=== PATIENT | female | born 1940 | race Native Hawaiian/Other Pacific Islander ===

== ENCOUNTER 2022-09-20 17:28 | Emergency (ER) | payer MEDICARE ==
[~2022-09-20] VITALS: Ht 157.5 cm; Wt 56.7 kg
[2022-09-20 17:35] VITALS: TEMP 98
[2022-09-20 18:15] LABS: PLATELET COUNT 383 K/uL (152-353)
[2022-09-20 18:30] LABS: POTASSIUM 3.6 mmol/L (3.6-5.2)
[2022-09-20 19:10] VITALS: BP 141/53
== END 2022-09-20 19:10 | disposition home or self-care (01) ==
LOC: ED 17:28
PROVIDERS: Emergency Medicine Emergency Medical Services
DX: M79.662 Pain in left lower leg (principal); M79.661 Pain in right lower leg; R19.7 Diarrhea, unspecified
CPT/HCPCS: 80053; 85027; 85610; 96361; 96374; 96375; 99284; J2270; J2405

== ENCOUNTER 2023-03-11 17:02 | Emergency (ER) | payer OTHER ==
[~2023-03-11] VITALS: Ht 157.5 cm; Wt 56.7 kg
[2023-03-11 17:02] VITALS: BP 130/73; TEMP 97.9
[2023-03-11 17:52] LABS: PLATELET COUNT 362 K/uL (152-353)
[2023-03-11 18:00] LABS: POTASSIUM 3.9 mmol/L (3.6-5.2)
[2023-03-11] MEDS ORDERED: ASPIRIN/ENTERIC81 MG PO (20:46)
[2023-03-11] MEDS ORDERED: CLARITIN10 MG PO (20:48)
[2023-03-11] MEDS ORDERED: MELATONIN10 M1 PO (20:49)
[2023-03-11] MEDS ORDERED: ROPINIROLE1 MG PO (20:50)
[2023-03-11] MEDS ORDERED: BUPR150T PO (20:51)
[2023-03-11] MEDS ORDERED: FLONASE AL50 MCG/ACT NAS (20:52)
[2023-03-11] MEDS ORDERED: GABA300C2 PO (20:53)
[2023-03-11] MEDS ORDERED: ONDA4TAB3 PO (20:56)
[2023-03-11] MEDS ORDERED: OMEP40CA PO (20:58)
[2023-03-11] MEDS ORDERED: ENTRESTO 24-261 TAB PO (21:04)
[2023-03-11] MEDS ORDERED: DICL1GEL2 TOP (21:08)
[2023-03-11] MEDS ORDERED: PRISTIQ100 MG PO (21:14)
[2023-03-28] MEDS ORDERED: LORA10TA3 PO (10:33)
[2023-03-28] MEDS ORDERED: ENTRESTO 49-511 TAB PO (10:34)
[2023-03-28] MEDS ORDERED: MEGE40TA32 PO (10:34)
[2023-03-28] MEDS ORDERED: ROPINIROLE0.5 MG PO (10:35)
[2023-03-28] MEDS ORDERED: ENTERIC COATED325 MG PO (10:35)
[2023-03-28] MEDS ORDERED: GABA300C2 PO (10:35)
[2023-03-28] MEDS ORDERED: ESCI10TA PO (10:36)
[2023-03-28] MEDS ORDERED: ACET-206 PO (10:36)
[2023-03-28] MEDS ORDERED: PANTOPRAZOLE 40MG TA PO (10:37)
[2023-03-28] MEDS ORDERED: ALUMSUS6 PO (10:37)
[2023-03-28] MEDS ORDERED: Flonase Nasal Inhale NAS (10:37)
[2023-03-28] MEDS ORDERED: TRAZ50TA36 PO (10:37)
[2023-03-28] MEDS ORDERED: Voltaren GEL 1% 100G TOP (10:38)
[2023-03-28] MEDS ORDERED: MAGNSUS68 PO (10:38)
[2023-03-28] MEDS ORDERED: FOLI1TAB26 PO (10:38)
== END 2023-03-11 19:20 | disposition other institution (70) ==
LOC: ED 17:02
PROVIDERS: Family Medicine
DX: Z04.6 Encounter for general psychiatric examination, requested by authority (principal); F29 Unspecified psychosis not due to a substance or known physiological condition; F32.A Depression, unspecified; K21.9 Gastro-esophageal reflux disease without esophagitis; I10 Essential (primary) hypertension; G25.81 Restless legs syndrome; Z20.822 Contact with and (suspected) exposure to COVID-19
CPT/HCPCS: 80053; 85027; 87635; 93005; 99283; U0003